=== PATIENT | female | born 1985 | race African-American/Black ===

== ENCOUNTER 2018-02-16 16:36 | Emergency (ER) | payer SELFPAY ==
--- NOTE | 2018-02-16 17:10 | ER Document Report ---
ED Medical Screen (RME) - General Mode of Arrival: Ambulatory Information source: Patient TRAVEL OUTSIDE OF THE [place] IN LAST 30 DAYS: No - HPI Patient complains to provider of: Vaginal Bleeding Onset: Yesterday Associated Symptoms: Other - see notes above <SONYA LEMONS - Last Filed: 02/16/18 18:18> <DARCIESANTANA - Last Filed: 02/16/18 20:14> - General Chief Complaint: Vag Bleeding, +preg <12wks Stated Complaint: VAGINAL BLEEDING Time Seen by Provider: 02/16/18 17:04 Notes: 32 year old female (9 weeks; ) presents to the ED complaining of vaginal spotting that started last night. Patient reports that she has been seen by her OB and has an ultrasound scheduled for next . Patient reports that the bleeding worsened today but no more than what are normal menstrual period is like. LMP: 12/15/2017 (SONYA LEMONS) - Related Data Allergies/Adverse Reactions: No Known Allergies Allergy (Unverified 02/16/18 16:36) Past Medical History - General Information source: Patient Last Menstrual Period: 12/15/2017 Renal/ Medical History: Denies: Hx Peritoneal Dialysis <SONYA LEMONS - Last Filed: 02/16/18 18:18> Review of Systems - Review of Systems Constitutional: No symptoms reported EENT: No symptoms reported Cardiovascular: No symptoms reported Respiratory: No symptoms reported Gastrointestinal: No symptoms reported Genitourinary: No symptoms reported Female Genitourinary: See HPI, Vaginal bleeding Musculoskeletal: No symptoms reported Skin: No symptoms reported Hematologic/Lymphatic: No symptoms reported Neurological/Psychological: No symptoms reported -: Yes All other systems reviewed and negative <SONYA LEMONS - Last Filed: 02/16/18 18:18> Physical Exam - General General appearance: Alert In distress: None - HEENT Head: Normocephalic, Atraumatic Eyes: Normal Extraocular movements intact: Yes Pupils: PERRL - Respiratory Respiratory status: No respiratory distress <SONYA LEMONS - Last Filed: 02/16/18 18:18> - Vital signs Vitals: Temp Pulse Resp BP Pulse Ox 98.1 F 66 16 116/80 99 02/16/18 16:50 02/16/18 16:50 02/16/18 16:50 02/16/18 16:50 02/16/18 16:50 Course - Laboratory Result Diagrams: 02/16/18 18:00 02/16/18 18:00 <SONYA LEMONS - Last Filed: 02/16/18 18:18> - Laboratory Result Diagrams: 02/16/18 18:00 02/16/18 18:00 <SANTANA ROCHA - Last Filed: 02/16/18 20:14> - Vital Signs Vital signs: Temp Pulse Resp BP Pulse Ox 98.1 F 66 16 116/80 99 02/16/18 16:50 02/16/18 16:50 02/16/18 16:50 02/16/18 16:50 02/16/18 16:50 - Laboratory Laboratory results interpreted by me: 02/16/18 02/16/18 17:12 18:00 Total Bilirubin 0.1 L Alkaline Phosphatase 37 L Beta HCG, Quant 5262.20 H Urine Blood LARGE H Ur Leukocyte Esterase TRACE H Scribe Documentation - Scribe Written by Scribe:: Ivet Vasquez, 02/16/2018 1821 acting as scribe for :: Darcie <SONYA LEMONS - Last Filed: 02/16/18 18:18>
[2018-02-16] MEDS ORDERED: HYDROCODONE/ACETAMINOPHEN 5-325 MG TABLET PO ONE (18:01)
[2018-02-16 18:18] LABS: APPEARANCE,URINE SLIGHTLY-CLOUDY; BILIRUBIN,URINE NEGATIVE (NEGATIVE); COLOR,URINE YELLOW; GLUCOSE, URINE NEGATIVE (NEGATIVE); KETONES,URINE NEGATIVE (NEGATIVE); LEUKOCYTE ESTERASE,URINE TRACE (NEGATIVE); NITRITE,URINE NEGATIVE (NEGATIVE); PROTEIN,URINE NEGATIVE (NEGATIVE); URINE SPECIFIC GRAVITY 1.017; UROBILINOGEN,URINE NEGATIVE mg/dL (<2.0)
[2018-02-16 18:28] LABS: ALANINE AMINOTRANSFERASE 31 U/L (9-52); ALBUMIN 4.2 g/dL (3.5-5.0); ALKALINE PHOSPHATASE 37 U/L (38-126); ANION GAP 9 (5-19); ASPARTATE AMINO TRANSFERASE 25 U/L (14-36); BILIRUBIN,DIRECT 0.1 mg/dL (0.0-0.4); BILIRUBIN,TOTAL 0.1 mg/dL (0.2-1.3); BLOOD UREA NITROGEN 8 mg/dL (7-20); CALCIUM 9.9 mg/dL (8.4-10.2); CARBON DIOXIDE 29 mmol/L (22-30); CHLORIDE 103 mmol/L (98-107); GLUCOSE 91 mg/dL (75-110); POTASSIUM 4.3 mmol/L (3.6-5.0); SODIUM 140.7 mmol/L (137-145); TOTAL PROTEIN 7.7 g/dL (6.3-8.2)
[2018-02-16 18:29] LABS: ABSOLUTE BASOPHILS # (AUTO) 0.1 10^3/uL (0.0-0.2); ABSOLUTE EOSINOPHILS # (AUTO) 0.3 10^3/uL (0.0-0.6); ABSOLUTE LYMPHOCYTES (AUTO) 2.2 10^3/uL (0.5-4.7); ABSOLUTE MONOCYTES (AUTO) 0.8 10^3/uL (0.1-1.4); ABSOLUTE NEUT (AUTO) 5.6 10^3/uL (1.7-8.2); BASOPHILS % (AUTO) 0.9 % (0-2); EOSINOPHILS % (AUTO) 3.1 % (0-6); HEMATOCRIT 38.9 % (36.0-47.0); HEMOGLOBIN 12.8 g/dL (12.0-15.5); LYMPHOCYTES % (AUTO) 24.4 % (13-45); MEAN CORPUSCULAR HEMOGLOBIN 29.2 pg (27.0-33.4); MEAN CORPUSCULAR VOLUME 88 fl (80-97); MONOCYTES % (AUTO) 9.1 % (3-13); PLATELET COUNT 246 10^3/uL (150-450); RED BLOOD COUNT 4.39 10^6/uL (3.72-5.28); RED CELL DISTRIBUTION WIDTH 13.9 % (11.5-14.0); SEGMENTED NEUTROPHILS % (AUTO) 62.5 % (42-78); TOTAL CELLS COUNTED % (AUTO) 100 %; WHITE BLOOD COUNT 8.9 10^3/uL (4.0-10.5)
--- NOTE | 2018-02-16 20:16 | RADIOLOGY REPORT (SQ) ---
EXAM DESCRIPTION: U/S OB TRANSVAG W/DOPPLER COMPLETED DATE/TIME: 02/16/2018 7:55 pm REASON FOR STUDY: vaginal bleeding, pain, 9 weeks preg COMPARISON: None. TECHNIQUE: Transvaginal static and realtime grayscale images acquired of the pelvis. Additional mirela cted spectral and color Doppler images recorded. All images stored on PACs. bHC,262 LIMITATIONS: None. FINDINGS: UTERUS: No masses. No anomalies. GESTATIONAL SAC: Yes. YOLK SAC: No. POLE: A possible pole was imaged, the crown-rump length of which measured consistent with a 6 week, 1 day gestational age. RIGHT ADNEXA: Ovary not identified. No adnexal free fluid. No adnexal masses. LEFT ADNEXA: Ovary not identified. No adnexal free fluid. No adnexal masses. FREE FLUID: None. OTHER: No other significant finding. IMPRESSION: POSSIBLE EARLY INTRAUTERINE . A gestational sac is present with a possible pole which measures consistent with a 6 week, 1 da y gestational age. The average ultrasound age is 7 weeks, 3 days. Recommend close clinical monitoring with serial beta hCGs and repeat imaging as appropriate. Trimester of : First - 0 to 13 weeks. TECHNICAL DOCUMENTATION: JOB ID: [id number] [employer] All Rights Reserved Reading location - IP/workstation name: [email or web address]
--- NOTE | 2018-02-16 20:40 | ER Document Report ---
ED General - General Chief Complaint: Vag Bleeding, +preg <12wks Stated Complaint: VAGINAL BLEEDING Time Seen by Provider: 02/16/18 17:04 Mode of Arrival: Ambulatory Notes: Patient is a 32 year old female at approximately 7 weeks by LMP who presents with several days of vaginal bleeding she states the bleeding is consistent with her typical menstrual cycle bleeding. She also notes that she has had intermittent generalized lower abdominal cramping. Nothing improves or worsens her symptoms. Symptoms have been overall unchanged since onset. She denies any history of similar symptoms during this . She is visiting from out of town and has been unable to follow-up with her [facility] [facility] secondary to this. She denies any abdominal trauma. No fever or vaginal discharge. No dysuria. TRAVEL OUTSIDE OF THE [place] IN LAST 30 DAYS: No - Related Data Allergies/Adverse Reactions: No Known Allergies Allergy (Unverified 02/16/18 16:36) Past Medical History - General Information source: Patient Last Menstrual Period: 12/15/2017 - Social History Smoking Status: Never Smoker Frequency of alcohol use: None Drug Abuse: None Lives with: Family Family History: Reviewed & Not Pertinent Patient has suicidal ideation: No Patient has homicidal ideation: No Renal/ Medical History: Denies: Hx Peritoneal Dialysis Review of Systems - Review of Systems Notes: Constitutional: Negative for fever. HENT: Negative for sore throat. Eyes: Negative for visual changes. Cardiovascular: Negative for chest pain. Respiratory: Negative for shortness of breath. Gastrointestinal: Negative for abdominal pain, vomiting or diarrhea. Genitourinary: Positive for vaginal bleeding Musculoskeletal: Negative for back pain. Skin: Negative for rash. Neurological: Negative for headaches, weakness or numbness. 10 point ROS negative except as marked above and in HPI. Physical Exam - Vital signs Vitals: Temp Pulse Resp BP Pulse Ox 98.1 F 66 16 116/80 99 02/16/18 16:50 02/16/18 16:50 02/16/18 16:50 02/16/18 16:50 02/16/18 16:50 Interpretation: Normal Notes: PHYSICAL EXAMINATION: GENERAL: Well-appearing, well-nourished and in no acute distress. HEAD: Atraumatic, normocephalic. EYES: Pupils equal round and reactive to light, extraocular movements intact, sclera anicteric, conjunctiva are normal. ENT: nares patent, oropharynx clear without exudates. Moist mucous membranes. NECK: Normal range of motion, supple without lymphadenopathy LUNGS: Breath sounds clear to auscultation bilaterally and equal. No wheezes rales or rhonchi. HEART: Regular rate and rhythm without murmurs ABDOMEN: Soft, nontender, normoactive bowel sounds. No guarding, no rebound. No masses appreciated. EXTREMITIES: Normal range of motion, no pitting or edema. No cyanosis. NEUROLOGICAL: No focal neurological deficits. Moves all extremities spontaneously and on command. PSYCH: Normal mood, normal affect. SKIN: Warm, Dry, normal turgor, no rashes or lesions noted. Course - Re-evaluation Re-evalutation: 02/16/18 20:39 Early MDM Patient presents with a mild amount of vaginal bleeding in the setting of an early first trimester . Transvaginal ultrasound i shows a possible intra-uterine that is very early. No active bleeding at time of presentation. She is Rh positive. Patient's abdominal exam is otherwise benign without any focal tenderness. I do not suspect an acute appendicitis, pyelonephritis, cystitis, or bowel obstruction. At this time I have informed the patient that she needs to return to the emergency department or the women's clinic in 48 hours for recheck of her quantitative beta hCG to assess whether or not this is a normal and to more thoroughly exclude an ectopic .At this time will discharge with return precautions and follow-up recommendations. Verbal discharge instructions given a the bedside and opportunity for questions given. Medication warnings reviewed. Patient is in agreement with this plan and has verbalized understanding of return precautions and the need for primary care follow-up in the next 24-72 hours. - Vital Signs Vital signs: Temp Pulse Resp BP Pulse Ox 97.6 F 68 16 125/66 100 02/16/18 21:09 02/16/18 21:09 02/16/18 21:09 02/16/18 21:09 02/16/18 21:09 - Laboratory Result Diagrams: 02/16/18 18:00 02/16/18 18:00 Laboratory results interpreted by me: 02/16/18 02/16/18 17:12 18:00 Total Bilirubin 0.1 L Alkaline Phosphatase 37 L Beta HCG, Quant 5262.20 H Urine Blood LARGE H Ur Leukocyte Esterase TRACE H - Diagnostic Test Radiology reviewed: Reports reviewed Discharge - Discharge Clinical Impression: Hemorrhage, , early, of unknown anatomic location Condition: Stable Disposition: HOME, SELF-CARE Additional Instructions: You need to return to the ED or the women's health clinic in 48 hours for a recheck of your hormone level. The ultrasound is unable to see anything at this time because you are too early in your . Please return if you develop severe abdominal pain, bleeding that goes through more than 2 pads for more than 2 hours, pass out, or have any other symptoms that are concerning to you. Please follow-up closely with your OBGYN regarding todays visit. Referrals: MARTHA PHELAN MD [ACTIVE STAFF] - 02/18/18
[2018-02-16 21:25] VITALS: BP 125/66
== END 2018-02-16 21:15 | disposition home or self-care (01) ==
LOC: ER 16:36
DX: O20.9 Hemorrhage in early pregnancy, unspecified (principal); O26.891 Other specified pregnancy related conditions, first trimester; R10.30 Lower abdominal pain, unspecified; Z3A.08 8 weeks gestation of pregnancy
CPT/HCPCS: 36415; 76817; 80053; 81001; 84702; 85025; 86900; 86901; 93976; 99284

== ENCOUNTER 2018-02-17 19:20 | Emergency (ER) | payer SELFPAY ==
[2018-02-17] MEDS ORDERED: HYDROCODONE/ACETAMINOPHEN 5-325 MG TABLET PO ONE (21:41)
--- NOTE | 2018-02-17 22:03 | RADIOLOGY REPORT (SQ) ---
EXAM DESCRIPTION: U/S OB TRANSVAG W/DOPPLER COMPLETED DATE/TIME: 02/17/2018 9:32 pm REASON FOR STUDY: +preg increased pain and bleeding COMPARISON: 02/16/2018 TECHNIQUE: Endovaginal static and realtime grayscale images acquired of the pelvis. Additional selec karina spectral and color Doppler images recorded. All images stored on PACs. BHCG: None available LIMITATIONS: None. FINDINGS: UTERUS: No visualized intrauterine . The endometrial canal is filled with mixed echogenicity clot. There is mixed echogenicity material in the cervix. Findings likely represent a spontaneous RIGHT ADNEXA: Normal ovary with normal vascular flow. Right ovary 2.1 x 2.6 x 2.3 cm in size No adnexal free fluid. No adnexal masses. LEFT ADNEXA: Not well seen due to adnexal bowel gas FREE FLUID: None. OTHER: No other significant finding. IMPRESSION: Endometrial canal is filled with mixed echogenicity clot. Endometrial canal is filled w ith mixed echogenicity clot. No intrauterine identified. Findings likely represent a spon taneous . TECHNICAL DOCUMENTATION: JOB ID: [id number]- All Rights Reserved Reading location - IP/workstation name: [email or web address]
--- NOTE | 2018-02-17 23:28 | ER Document Report ---
ED General - General Chief Complaint: Abdominal Pain Stated Complaint: ABDOMINAL PAIN Time Seen by Provider: 02/17/18 19:48 TRAVEL OUTSIDE OF THE [place] IN LAST 30 DAYS: No - HPI Patient complains to provider of: Abdominal pain vaginal bleeding Notes: Patient was seen last night for abdominal pain vaginal bleeding found to have a possible IUP patient states bleeding worsened and pain increased therefore came back to the ER for further evaluation. Denies fevers chills nausea vomiting patient otherwise does not look to be toxic at this time. - Related Data Allergies/Adverse Reactions: No Known Allergies Allergy (Verified 02/17/18 19:25) Past Medical History - Social History Smoking Status: Never Smoker Chew tobacco use (# tins/day): No Frequency of alcohol use: None Drug Abuse: None Family History: Reviewed & Not Pertinent Patient has suicidal ideation: No Patient has homicidal ideation: No Renal/ Medical History: Denies: Hx Peritoneal Dialysis Review of Systems - Review of Systems Constitutional: No symptoms reported EENT: No symptoms reported Cardiovascular: No symptoms reported Respiratory: No symptoms reported Gastrointestinal: Abdominal pain Genitourinary: No symptoms reported Female Genitourinary: Vaginal bleeding Musculoskeletal: No symptoms reported Skin: No symptoms reported Hematologic/Lymphatic: No symptoms reported Neurological/Psychological: No symptoms reported -: Yes All other systems reviewed and negative Physical Exam - Vital signs Vitals: Temp Pulse Resp BP Pulse Ox 98.2 F 74 16 113/67 100 02/17/18 19:31 02/17/18 19:31 02/17/18 19:31 02/17/18 19:31 02/17/18 19:31 Interpretation: Normal - General General appearance: Appears well, Alert - HEENT Head: Normocephalic, Atraumatic Eyes: Normal Pupils: PERRL - Respiratory Respiratory status: No respiratory distress Chest status: Nontender Breath sounds: Normal Chest palpation: Normal - Cardiovascular Rhythm: Regular Heart sounds: Normal auscultation Murmur: No - Abdominal Inspection: Normal Distension: No distension Bowel sounds: Normal Tenderness: Nontender Organomegaly: No organomegaly - Back Back: Normal, Nontender - Extremities General upper extremity: Normal inspection, Nontender, Normal color, Normal ROM , Normal temperature General lower extremity: Normal inspection, Nontender, Normal color, Normal ROM , Normal temperature, Normal weight bearing. No: Kirti's sign - Neurological Neuro grossly intact: Yes Cognition: Normal Orientation: AAOx4 [place] Coma Scale Eye Opening: Spontaneous [place] Coma Scale Verbal: Oriented [place] Coma Scale Motor: Obeys Commands [place] Coma Scale Total: 15 Speech: Normal Motor strength normal: LUE, RUE, LLE, RLE Sensory: Normal - Psychological Associated symptoms: Normal affect, Normal mood - Skin Skin Temperature: Warm Skin Moisture: Dry Skin Color: Normal Course - Re-evaluation Re-evalutation: 02/18/18 00:11 Following for ultrasound patient passed a large blood clot look to have material this was collected and sent and laboratory patient did undergo ultrasound that did not show an identifiable IUP more consistent with spontaneous patient does also have a decrease in her beta-hCG. Did educate patient otherwise vital signs at this time remained stable. Patient is to follow-up with [facility] return in approximately 4872 hours for repeat beta-hCG' s. Patient was given pain medication for home. Patient voiced understanding when signs to return. - Vital Signs Vital signs: Temp Pulse Resp BP Pulse Ox 98.4 F 64 16 110/60 99 02/17/18 23:48 02/17/18 23:48 02/17/18 23:48 02/17/18 23:48 02/17/18 23:48 - Laboratory Laboratory results interpreted by me: 02/17/18 20:35 Beta HCG, Quant 2041.00 H Discharge - Discharge Clinical Impression: Spontaneous Instructions: Miscarriage ([facility]), [facility] Doctors Additional Instructions: Unfortunately your laboratory studies and ultrasound are consistent with a miscarriage night. SHe can expect to have abdominal cramping and bleeding. Please return to ER if the bleeding increases you become lightheaded or dizzy or if you develop a fever. I highly recommend following up in 48 to 72 hours for repeat beta-hCG testing also follow-up with [facility]MENT [facility]. Return to ER symptoms worsen. Prescriptions: Hydrocodone Bit/Acetaminophen [Hydrocodon-Acetaminophen 5-325] 1 each PO Q6 #20 tablet Forms: Return to Work, Follow-Up Outpatient Testing
[2018-02-17] MEDS ORDERED: HYDROCODONE/ACETAMINOPHEN 5-325 MG (6 TAB/ER DISP) PO PRN (23:35)
[2018-02-17 23:49] VITALS: BP 110/60
== END 2018-02-18 00:38 | disposition home or self-care (01) ==
LOC: ER 19:20
DX: O03.9 Complete or unspecified spontaneous abortion without complication (principal)
CPT/HCPCS: 36415; 76817; 84702; 88305; 93976; 99284